=== PATIENT | male | born 1940 | race Caucasian/White ===

== ENCOUNTER → 2016-08-31 | Outpatient (CLI) | payer OTHER ==
[~2016-08-31] MED LIST: ASPI-650 PO; ATOR40TA78 PO; LOSA50TA2 PO; LOSA50TA6 PO; METO-93 PO; OMEP-110 PO; PRAV10TA2 PO; SPIR50TA PO
== END | disposition home or self-care (01) ==
LOC: PETCFH 07:13
PROVIDERS: ATTEND Physician Assistant Surgical
DX: M47.24 Other spondylosis with radiculopathy, thoracic region (principal); N32.89 Other specified disorders of bladder
CPT/HCPCS: 78306; A9503

== ENCOUNTER → 2016-08-31 | Outpatient (CLI) | payer OTHER | END | disposition home or self-care (01) | LOC: CFH 07:14 | PROVIDERS: ATTEND Internal Medicine Pulmonary Disease | DX: J92.9 Pleural plaque without asbestos (principal); R91.8 Other nonspecific abnormal finding of lung field | CPT/HCPCS: 71250 ==

== ENCOUNTER → 2016-09-01 | Outpatient (CLI) | payer OTHER | END | disposition home or self-care (01) | LOC: RAD 09:33 | PROVIDERS: ATTEND Physician Assistant Surgical | DX: S22.069A Unspecified fracture of T7-T8 vertebra, initial encounter for closed fracture (principal); M47.24 Other spondylosis with radiculopathy, thoracic region; M51.14 Intervertebral disc disorders with radiculopathy, thoracic region; R91.8 Other nonspecific abnormal finding of lung field; M48.04 Spinal stenosis, thoracic region; N28.1 Cyst of kidney, acquired; K76.89 Other specified diseases of liver; X58.XXXA Exposure to other specified factors, initial encounter; Y93.89 Activity, other specified; Y92.89 Other specified places as the place of occurrence of the external cause; Y99.8 Other external cause status | CPT/HCPCS: 36415; 72157; 82565 ==

== ENCOUNTER 2016-09-03 05:38 | Day surgery (SDC) | payer OTHER ==
[~2016-09-03] VITALS: Ht 175.3 cm; Wt 62.6 kg
[2016-09-03 07:00] VITALS: BP 115/79
[2016-09-03] MEDS ORDERED: LIDOCAINE 1%, 20ML ONE (07:47)
[2016-09-03] MEDS ORDERED: MIDAZOLAM 1 MG/ML, 5ML ONE (07:58)
[2016-09-03] MEDS ORDERED: FENTANYL PF 100 MCG/2ML ONE (07:59)
[2016-09-03] MEDS ORDERED: NALOXONE 1 MG/ML, 2ML ONE (07:59)
[2016-09-03] MEDS ORDERED: FLUMAZENIL 0.1 MG/1 ML, 5ML ONE (07:59)
== END 2016-09-03 10:10 ==
LOC: OUT 05:38
PROVIDERS: ATTEND Neurological Surgery
DX: M51.84 Other intervertebral disc disorders, thoracic region (principal); F17.210 Nicotine dependence, cigarettes, uncomplicated; I10 Essential (primary) hypertension; J44.9 Chronic obstructive pulmonary disease, unspecified; Z79.82 Long term (current) use of aspirin
CPT/HCPCS: 20225; 77012; 88307; 88311; 99156; 99157; J2250; J3010; J3490; J2310

== ENCOUNTER → 2016-09-16 | Outpatient (CLI) | payer OTHER ==
[~2016-09-16] MED LIST changes: +ATOR40TA PO
== END | disposition home or self-care (01) ==
LOC: PETCFH 13:39
PROVIDERS: ATTEND Internal Medicine Critical Care Medicine
DX: C79.51 Secondary malignant neoplasm of bone (principal); C34.90 Malignant neoplasm of unspecified part of unspecified bronchus or lung; R91.8 Other nonspecific abnormal finding of lung field; N32.0 Bladder-neck obstruction; N13.30 Unspecified hydronephrosis; R59.1 Generalized enlarged lymph nodes
CPT/HCPCS: 78815; A9552

== ENCOUNTER 2016-09-17 05:29 | Day surgery (SDC) | payer OTHER ==
[2016-09-16 12:10] LABS: ASPARTATE AMINO TRANSFERASE 12 U/L (15-37); BLOOD UREA NITROGEN 18 mg/dL (7-18)
[~2016-09-17] VITALS: Ht 175.3 cm; Wt 64.0 kg
[2016-09-17 06:25] VITALS: BP 136/76
[2016-09-17] MEDS ORDERED: LACTATED RINGERS 1,000 ML IV SCH (06:27)
[2016-09-17] MEDS ORDERED: LIDOCAINE 1%, 2ML SQ PRN (06:30)
[2016-09-17] MEDS ORDERED: FENTANYL PF 250 MCG/5ML ONE (07:28)
[2016-09-17] MEDS ORDERED: PHENYLEPHRINE 10 MG/ML ONE (07:40)
[2016-09-17] MEDS ORDERED: DEXAMETHASONE 4 MG/ML, 1ML ONE (07:40)
[2016-09-17] MEDS ORDERED: ROCURONIUM 10 MG/ML ONE (07:40)
[2016-09-17] MEDS ORDERED: EPHEDRINE 50 MG/ML, 1ML ONE (07:40)
[2016-09-17] MEDS ORDERED: PROPOFOL 10 MG/ML, 20ML ONE (07:40)
[2016-09-17] MEDS ORDERED: ONDANSETRON 2MG/ML, 2ML ONE (07:40)
[2016-09-17] MEDS ORDERED: SUCCINYLCHOLINE 20 MG/ML, 10ML ONE (07:40)
[2016-09-17] MEDS ORDERED: LABETALOL 5MG/ML, 20ML IV PRN (08:30)
[2016-09-17] MEDS ORDERED: HYDROmorphone 1 MG/ML, 1ML IV PRN (08:30)
[2016-09-17] MEDS ORDERED: PROMETHAZINE 25 MG/ML, 1ML IV PRN (08:30)
[2016-09-17] MEDS ORDERED: FENTANYL PF 100 MCG/2ML IV PRN (08:30)
[2016-09-17] MEDS ORDERED: ACETAMINOPHEN 325 MG TABLET PO PRN (08:30)
[2016-09-17] MEDS ORDERED: OXYcodone 5 MG/5 ML ORAL.SOL UDC PO PRN (08:30)
[2016-10-07] MEDS ORDERED: HYDR-3237 PO (06:45)
== END 2016-09-17 12:05 ==
LOC: OUT 05:29
PROVIDERS: ATTEND Internal Medicine Critical Care Medicine
DX: D76.3 Other histiocytosis syndromes (principal); I25.2 Old myocardial infarction; I10 Essential (primary) hypertension; J44.9 Chronic obstructive pulmonary disease, unspecified; F17.210 Nicotine dependence, cigarettes, uncomplicated; Z79.82 Long term (current) use of aspirin
CPT/HCPCS: 31623; 31624; 31628; 31629; 36415; 71010; 76001; 80053; 88112; 88172; 88173; 88177; 88304; 88305; 88312; 88341; 88342; 93005; J0330; J1100; J2370; J2405; J2704; J3010; J7120; 31622; G0461

== ENCOUNTER 2016-10-07 05:52 | Day surgery (SDC) | payer OTHER ==
[~2016-10-07] VITALS: Ht 175.3 cm; Wt 62.7 kg
[2016-10-07 06:15] VITALS: BP 134/84
[2016-10-07] MEDS ORDERED: SODIUM CHLORIDE 0.9% 1,000 ML IV SCH (06:42)
[2016-10-07] MEDS ORDERED: UMEC1DIS INH (06:45)
[2016-10-07] MEDS ORDERED: HYDR-3138 PO (06:45)
[2016-10-07] MEDS ORDERED: METO25TA35 PO (06:45)
[2016-10-07] MEDS ORDERED: MIDAZOLAM 1 MG/ML, 5ML ONE (08:28)
[2016-10-07] MEDS ORDERED: FENTANYL PF 100 MCG/2ML ONE (08:29)
[2016-10-07] MEDS ORDERED: FLUMAZENIL 0.1 MG/1 ML, 5ML ONE (08:29)
[2016-10-07] MEDS ORDERED: NALOXONE 1 MG/ML, 2ML ONE (08:29)
== END 2016-10-07 11:25 ==
LOC: OUT 05:52
PROVIDERS: ATTEND Internal Medicine Critical Care Medicine
DX: J18.9 Pneumonia, unspecified organism (principal); I10 Essential (primary) hypertension; J44.9 Chronic obstructive pulmonary disease, unspecified; F17.210 Nicotine dependence, cigarettes, uncomplicated
CPT/HCPCS: 32405; 71010; 77012; 88305; 99156; J2250; J3010; J7030; 88312; 99157; J2310

== ENCOUNTER 2016-10-10 08:13 | Emergency (ER) | payer OTHER ==
[~2016-10-10] VITALS: Ht 175.3 cm; Wt 60.0 kg
[~2016-10-10 08:13] MED LIST changes: +HYDR-3138 PO; +METO25TA35 PO; +UMEC1DIS INH
[2016-10-10] MEDS ORDERED: HYDROmorphone 1 MG/ML, 1ML IM PRN (09:30)
[2016-10-10] MEDS ORDERED: SODIUM CHLORIDE FLUSH 10ML SYR IVF ONE (09:30)
[2016-10-10] MEDS ORDERED: SODIUM CHLORIDE 0.9% 1,000ML IVBOLUS ONE (09:30)
[2016-10-10] MEDS ORDERED: HYDROmorphone 1 MG/ML, 1ML ONE (09:34)
[2016-10-10 09:36] LABS: HEMOGLOBIN 13.9 g/dL (13.7-18.0); WHITE BLOOD COUNT 16.1 x10^3/uL (3.4-10)
[2016-10-10 09:49] LABS: BLOOD UREA NITROGEN 29 mg/dL (7-18)
[2016-10-10 09:52] LABS: ASPARTATE AMINO TRANSFERASE 16 U/L (15-37)
[2016-10-10] MEDS ORDERED: OMNIPAQUE 350 MG/ML, 100ML BOTTLE ONE (10:39)
[2016-10-10] MEDS ORDERED: METHYLNALTREXONE 12 MG/0.6 ML SQ ONE (11:30)
[2016-10-10] MEDS ORDERED: HYDROmorphone 1 MG/ML, 1ML IV ONE (12:00)
[2016-10-10 13:40] VITALS: BP 128/74
== END 2016-10-10 13:41 | disposition home or self-care (01) ==
LOC: ED 08:18
DX: R33.9 Retention of urine, unspecified (principal); I11.9 Hypertensive heart disease without heart failure; J44.9 Chronic obstructive pulmonary disease, unspecified; I25.810 Atherosclerosis of coronary artery bypass graft(s) without angina pectoris; F17.200 Nicotine dependence, unspecified, uncomplicated; Z95.1 Presence of aortocoronary bypass graft
CPT/HCPCS: 36415; 51702; 74177; 80053; 81003; 83605; 83690; 85025; 85610; 96360; 96372; 99291; J1170; J7030; Q9967

== ENCOUNTER 2016-10-11 12:08 | Emergency (ER) | payer OTHER ==
[~2016-10-11] VITALS: Ht 175.3 cm; Wt 59.4 kg
[~2016-10-11 12:08] MED LIST changes: -HYDR-3138 PO; +HYDR-3237 PO
[2016-10-11 12:16] VITALS: BP 129/66
== END 2016-10-11 14:53 | disposition home or self-care (01) ==
LOC: ED 14:40
DX: R31.0 Gross hematuria (principal); R33.9 Retention of urine, unspecified; J44.9 Chronic obstructive pulmonary disease, unspecified; I11.9 Hypertensive heart disease without heart failure; I25.2 Old myocardial infarction
CPT/HCPCS: 99284

== ENCOUNTER 2016-10-22 06:23 | Day surgery (SDC) | payer OTHER ==
[~2016-10-22] VITALS: Ht 175.3 cm; Wt 57.0 kg
[2016-10-22] MEDS ORDERED: LACTATED RINGERS 1,000 ML IV SCH (06:57)
[2016-10-22 06:59] VITALS: BP 137/85
[2016-10-22] MEDS ORDERED: DEXAMETHASONE 4 MG/ML, 1ML ONE (08:20)
[2016-10-22] MEDS ORDERED: ONDANSETRON 2MG/ML, 2ML ONE (08:20)
[2016-10-22] MEDS ORDERED: PROPOFOL 10 MG/ML, 20ML ONE (08:20)
[2016-10-22] MEDS ORDERED: MEPERIDINE/PF 25MG/0.5ML IVPush PRN (09:00)
[2016-10-22] MEDS ORDERED: hydrALAzine 20 MG/ML, 1ML IV PRN (09:00)
[2016-10-22] MEDS ORDERED: ALBUTEROL SULFATE 2.5 MG/3 ML NPPB PRN (09:00)
[2016-10-22] MEDS ORDERED: PROMETHAZINE 25 MG/ML, 1ML IV PRN (09:00)
[2016-10-22] MEDS ORDERED: LABETALOL 5MG/ML, 20ML IV PRN (09:00)
[2016-10-22] MEDS ORDERED: HYDROmorphone 1 MG/ML, 1ML IV PRN (09:00)
[2016-10-22] MEDS ORDERED: ONDANSETRON 2MG/ML, 2ML IVPush PRN (09:00)
[2016-10-22] MEDS ORDERED: OXYcodone 5 MG/5 ML ORAL.SOL UDC PO PRN (09:00)
[2016-10-22] MEDS ORDERED: MIDAZOLAM 1 MG/ML, 2ML IV PRN (09:00)
[2016-10-22] MEDS ORDERED: FENTANYL PF 100 MCG/2ML IV PRN (09:00)
== END 2016-10-22 09:45 ==
LOC: OR 06:23
PROVIDERS: ATTEND Internal Medicine Gastroenterology
DX: K29.50 Unspecified chronic gastritis without bleeding (principal); K44.9 Diaphragmatic hernia without obstruction or gangrene; K21.9 Gastro-esophageal reflux disease without esophagitis; K31.89 Other diseases of stomach and duodenum; I25.10 Atherosclerotic heart disease of native coronary artery without angina pectoris; I10 Essential (primary) hypertension; Z95.1 Presence of aortocoronary bypass graft; Z98.890 Other specified postprocedural states; Z79.82 Long term (current) use of aspirin; Z87.891 Personal history of nicotine dependence
CPT/HCPCS: 36415; 43239; 86480; 88305; 88342; J1100; J2405; J2704; J7120; G0461

== ENCOUNTER → 2016-11-15 | Outpatient (CLI) | payer OTHER ==
[~2016-11-15] MED LIST changes: +TAMS0.4C2 PO
[2016-11-15 12:26] LABS: HEMATOCRIT 43.2 % (39.2-51.8); HEMOGLOBIN 14.4 g/dL (13.7-18.0); WHITE BLOOD COUNT 13.1 x10^3/uL (3.4-10)
[2016-11-15 12:38] LABS: ASPARTATE AMINO TRANSFERASE 15 U/L (15-37)
[2016-11-15 12:43] LABS: BLOOD UREA NITROGEN 25 mg/dL (7-18)
== END | disposition home or self-care (01) ==
LOC: STAR 11:01
PROVIDERS: ATTEND Neurological Surgery
DX: Z01.818 Encounter for other preprocedural examination (principal); J44.9 Chronic obstructive pulmonary disease, unspecified; J92.9 Pleural plaque without asbestos; D48.0 Neoplasm of uncertain behavior of bone and articular cartilage; I44.7 Left bundle-branch block, unspecified; I51.7 Cardiomegaly; R79.1 Abnormal coagulation profile; Z87.891 Personal history of nicotine dependence
CPT/HCPCS: 36415; 71020; 80053; 85025; 85610; 85730; 93005